=== PATIENT | female | born 1945 | race Native Hawaiian/Other Pacific Islander ===

== ENCOUNTER 2017-08-07 18:43 | Inpatient (IN) | payer OTHER ==
--- NOTE | 2017-08-08 11:43 | NUR ---
@0800 REPORT GIVEN BY ARSEN WADSWORTH RN, PT LYING IN BED, AWAKE, ALERT AND ORIENTED TO PERSON, PLACE AND TIME. NO FAMILY PRESENT AT THIS TIME. PT TURNED AND REPOSITIONED FOR COMFORT. NAD NOTED AT THIS TIME. NO C/O VOICED.
[2017-08-10 20:06] VITALS: BP 134/86; TEMP 98.1
[2017-08-11 19:45] VITALS: BP 146/74; TEMP 98.3
[2017-08-13 08:00] VITALS: BP 169/90; TEMP 97.7
[2017-08-14 07:29] VITALS: BP 158/87
== END 2017-08-15 12:02 | disposition home health service (06) | DRG 951 ==
LOC: MED/SURG 18:43
DX: Z51.5 Encounter for palliative care (principal)